=== PATIENT | female | born 1990 | race American Indian/Alaskan Native ===

== ENCOUNTER 2017-08-22 10:29 | Emergency (ER) | payer MEDICAID ==
[2017-08-22 11:54] VITALS: BP 118/72
[2017-08-22] MEDS ORDERED: TORADOL ONE (13:33)
[2017-08-22] MEDS ORDERED: ZOFRAN ODT ONE (13:33)
[2017-08-22] MEDS ORDERED: TORADOL IM ONE (13:35)
[2017-08-22] MEDS ORDERED: ZOFRAN ODT PO ONE (13:35)
[2017-08-22] MEDS ORDERED: IMITREX SUB-Q ONE (13:35)
--- NOTE | 2017-08-22 13:41 | Emergency Department Report ---
ED Headache HPI - General Chief Complaint: Headache Stated Complaint: HEADACHE Time Seen by Provider: 08/22/17 13:25 Source: patient - History of Present Illness Initial Comments: Ms. Lucia 27-year-old female with history of recurrent persistent headache. She has had headaches since 2008. She has a right temporal headache for the previous 2 days. 7/10 in severity. Throbbing in nature. Gradual onset. Patient states she has chronic headaches. She has headaches "every single day" . She was evaluated by neurologist 2 weeks ago. She was able to show me MRI of the brain report with and without contrast no acute process or lesions seen on the report. She denies any stressors. She enjoys her job. She gets an adequate amount of sleep. Grandmother and 2 other relatives have history of aneurysm. Paternal grandmother due to complications of brain aneurysm. She was prescribed Topamax and a secondary medication for her headaches. These medications are not helping her pain. Today she had dizziness. Episode of vomiting. She did not have syncope. She did not black out. Allergies/Adverse Reactions: Allergies No Known Allergies Allergy (Unverified 12/28/13 10:58) Home Medications: Ambulatory Orders Ondansetron [Zofran Odt] 4 mg PO Q8H PRN #10 tab.rapdis 12/28/13 Acetamin/Codeine 120-12Mg/5 ml [Tylenol/Codeine] 5 ml PO TID PRN #30 ml Azithromycin [Zithromax Z-OSWALD] 250 mg PO DAILY #6 tablet 09/15/14 Cetirizine HCl [Allergy Relief] 10 mg PO DAILY #10 tablet 09/15/14 Fluticasone Propionate [Flonase] 100 mcg NS QDAY #1 spray.susp 09/15/14 Docusate Sodium [Colace] 100 mg PO BID PRN #30 capsule 05/10/15 Acetaminophen/Codeine [Tylenol /Codeine # 3 tab] 1 tab PO Q6H PRN #14 tab ED Review of Systems ROS: Stated complaint: HEADACHE Other details as noted in HPI Comment: All other systems reviewed and negative Constitutional: denies: chills, fever, malaise ENT: denies: ear pain Respiratory: denies: cough Cardiovascular: denies: chest pain ED Past Medical Hx - Past Medical History Hx Headaches / Migraines: Yes Additional medical history: states on no meds for migrain gait steady no distress noted [id number] - Surgical History Additional Surgical History: - Social History Smoking Status: Never Smoker Substance Use Type: None - Medications Home Medications: Home Medications Medication Instructions Recorded Confirmed Last Taken Type Ondansetron [Zofran Odt] 4 mg PO Q8H PRN #10 tab.rapdis 12/28/13 Unknown Rx Acetamin/Codeine 120-12Mg/5 ml 5 ml PO TID PRN #30 ml 09/15/14 Unknown Rx [Tylenol/Codeine] Azithromycin [Zithromax Z-OSWALD] 250 mg PO DAILY #6 tablet 09/15/14 Unknown Rx Cetirizine HCl [Allergy Relief] 10 mg PO DAILY #10 tablet 09/15/14 Unknown Rx Fluticasone Propionate [Flonase] 100 mcg NS QDAY #1 spray.susp 09/15/14 Unknown Rx Docusate Sodium [Colace] 100 mg PO BID PRN #30 capsule 05/10/15 Unknown Rx Acetaminophen/Codeine [Tylenol 1 tab PO Q6H PRN #14 tab 10/15/15 Unknown Rx /Codeine # 3 tab] ED Physical Exam - General Limitations: No Limitations General appearance: alert, in no apparent distress - Head Head exam: Present: atraumatic, normocephalic - Eye Eye exam: Present: normal appearance - ENT ENT exam: Present: mucous membranes moist - Neck Neck exam: Present: normal inspection. Absent: meningismus - Respiratory Respiratory exam: Present: normal lung sounds bilaterally. Absent: respiratory distress, wheezes, rales, rhonchi - Cardiovascular Cardiovascular Exam: Present: regular rate, normal rhythm, normal heart sounds. Absent: systolic murmur, diastolic murmur, rubs, gallop - GI/Abdominal GI/Abdominal exam: Present: soft, normal bowel sounds. Absent: distended, tenderness, guarding, rebound - Extremities Exam Extremities exam: Present: normal inspection - Back Exam Back exam: Present: normal inspection - Neurological Exam Neurological exam: Present: alert, oriented X3, CN II-XII intact, normal gait. Absent: motor sensory deficit - Psychiatric Psychiatric exam: Present: normal affect, normal mood - Skin Skin exam: Present: warm, dry, intact, normal color. Absent: rash ED Course Vital Signs 08/22/17 11:50 Temperature 98.7 F Pulse Rate 65 Respiratory 16 Rate Blood Pressure 118/72 O2 Sat by Pulse 99 Oximetry ED Medical Decision Making - Medical Decision Making Ms. Mars is a 27-year-old female with history of chronic headache. She is currently under the care of a neurologist with recent evaluation this month. Recent MRI obtained August 02 process no lesion. I reviewed the report showing to me by the patient. Patient received IM Toradol, subcutaneous Imitrex, by mouth Zofran. I prescribed promethazine as needed for headache. Discharged home in stable condition. Critical care attestation.: If time is entered above; I have spent that time in minutes in the direct care of this critically ill patient, excluding procedure time. ED Disposition Clinical Impression: Chronic headache disorder Disposition: DC-01 TO HOME OR SELFCARE Is pt being admited?: No Does the pt Need Aspirin: No Condition: Stable Instructions: Acute Headache (ED) Additional Instructions: Please contact your neurologist today. Please inform the neurologist of your ED visit. Referrals: PRIMARY CAREMD [Primary Care Provider] - BH[facility]ATI Forms: Work/School Release Form(ED) Time of Disposition: 13:43
== END 2017-08-22 13:56 | disposition home or self-care (01) ==
LOC: ED 10:29
DX: G43.909 Migraine, unspecified, not intractable, without status migrainosus (principal)
CPT/HCPCS: 96372; 99282; J1885; J3030; Q0162

== ENCOUNTER 2018-11-02 19:48 | Emergency (ER) | payer OTHER, MEDICAID ==
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
[2018-11-02] MEDS ORDERED: ULTRAM PO ONE (22:12)
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
[2018-11-02 23:21] VITALS: BP 117/76
== END 2018-11-02 23:21 | disposition home or self-care (01) ==
LOC: ED 19:48
DX: S16.1XXA Strain of muscle, fascia and tendon at neck level, initial encounter (principal); S39.012A Strain of muscle, fascia and tendon of lower back, initial encounter; G43.909 Migraine, unspecified, not intractable, without status migrainosus; V87.7XXA Person injured in collision between other specified motor vehicles (traffic), initial encounter; Y93.89 Activity, other specified; Y92.488 Other paved roadways as the place of occurrence of the external cause; Y99.8 Other external cause status
CPT/HCPCS: 70450; 72040; 72100; 99284

== ENCOUNTER 2021-10-28 21:53 | Emergency (ER) | payer MEDICAID, OTHER | END 2021-10-29 10:34 | disposition left against medical advice (07) | LOC: ED 21:53 | DX: R07.9 Chest pain, unspecified (principal); J00 Acute nasopharyngitis [common cold]; Z53.21 Procedure and treatment not carried out due to patient leaving prior to being seen by health care provider ==